=== PATIENT | female | born 1985 | race Caucasian/White ===

== ENCOUNTER 2023-08-02 14:59 | Emergency (ER) | payer OTHER ==
--- NOTE | 2023-08-02 15:08 | ED ---
General Adult HPI <Danette Mckee - Last Filed: 08/02/23 15:07> <Chaka Ryan - Last Filed: 08/03/23 20:23> - General Stated complaint: Abd Pain Time Seen by Provider: 08/02/23 15:08 - History of Present Illness Initial comments: 37-year-old female sitting emergency department with a chief complaint of abdominal pain. She reports it started at 0900 this morning. Patient is currently and [facility] for EtOH withdrawal. Last known alcoholic beverages approximately 18 days ago. (Danette Mckee) 37-year-old female presenting with chief complaint of nausea vomiting and diarrhea. Symptoms started this morning. Patient is currently at [facility] for alcohol withdrawal. She normally drinks a half gallon per day, her last drink was on either July 27, she is unsure. She was having some abdominal discomfort, she has history of pancreatitis and was concerned she may be having a pancreatitis flareup. She admits to headache. No chest pain or difficulty breathing. No fevers or chills. No palpitations, numbness, tingling. (Chaka Ryan) - Related Data Previous Rx's Medication Instructions Recorded Ondansetron Odt [Zofran Odt] 4 mg PO Q8HR PRN #20 tab 08/03/23 Ondansetron Odt [Zofran Odt] 4 mg PO Q8HR PRN #20 tab 08/03/23 Allergies Allergy/AdvReac Type Severity Reaction Status Date / Time No Known Allergies Allergy Verified 08/02/23 18:48 Review of Systems ROS Other: All systems not noted in ROS Statement are negative. <Danette Mckee - Last Filed: 08/02/23 15:07> ROS Other: All systems not noted in ROS Statement are negative. <Chaka Ryan - Last Filed: 08/03/23 20:23> ROS Statement: Those systems with pertinent positive or pertinent negative responses have been documented in the HPI. General Exam <Danette Mckee - Last Filed: 08/02/23 15:07> Limitations: no limitations General appearance: alert, in no apparent distress Head exam: Present: atraumatic, normocephalic Eye exam: Present: normal appearance Neck exam: Present: normal inspection Respiratory exam: Present: normal lung sounds bilaterally. Absent: respiratory distress, wheezes, rales, rhonchi, stridor Cardiovascular Exam: Present: regular rate, normal rhythm, normal heart sounds. Absent: systolic murmur, diastolic murmur, rubs, gallop, clicks GI/Abdominal exam: Present: soft, tenderness (Diffuse discomfort). Absent: distended, guarding, rebound, rigid Neurological exam: Present: alert, oriented X3 Psychiatric exam: Present: normal affect, normal mood Skin exam: Present: warm, dry <Chaka Ryan - Last Filed: 08/03/23 20:23> - General Exam Comments Initial Comments: Visual Physical Exam Vital signs reviewed General: Well-appearing, nontoxic, no acute distress. Head: Normocephalic, atraumatic Eyes: PERRLA, EOMI ENT: Airway patent Chest: Nonlabored breathing Skin: No visual rash, normal skin tone Neuro: Alert and oriented 3 Musculoskeletal: No gross abnormalities (Danette Mckee) Course Vital Signs 08/02/23 08/03/23 08/03/23 18:40 01:40 04:42 Temperature 98.8 F 98.4 F 98.2 F Pulse Rate 84 79 76 Respiratory 22 18 18 Rate Blood Pressure 126/87 108/75 112/74 O2 Sat by Pulse 100 97 97 Oximetry Medical Decision Making <Danette Mckee - Last Filed: 08/02/23 15:07> - Lab Data Result diagrams: 08/02/23 21:04 08/02/23 21:04 <Chaka Ryan - Last Filed: 08/03/23 20:23> - Medical Decision Making I performed the quick note portion of this exam, verbal signature Danette Mckee PA-C (Danette Mckee) Was pt. sent in by a medical professional or institution (ANGELA Rush, MAGNETIC PROSPECTOR, urgent care, hospital, or prison...) When possible be specific @ -No Did you speak to anyone other than the patient for history (EMS, parent, family, police, friend...)? What history was obtained from this source @ -No Did you review nursing and triage notes (agree or disagree)? Why? @ -I reviewed and agree with nursing and triage notes Were old charts reviewed (outside hosp., previous admission, EMS record, old EKG, old radiological studies, urgent care reports/EKG's, prison records)? Report findings @ -No old charts were reviewed Differential Diagnosis (chest pain, altered mental status, abdominal pain women, abdominal pain men, vaginal bleeding, weakness, fever, dyspnea, syncope, headache, dizziness, GI bleed, back pain, seizure, CVA, palpatations, mental health, musculoskeletal)? @ -Differential includes alcohol withdrawal, gastroenteritis, pancreatitis, pyelonephritis, this is not an all inclusive list EKG interpreted by me (3pts min.). @ -As above X-rays interpreted by me (1pt min.). @ -None done CT interpreted by me (1pt min.). @ -None done U/S interpreted by me (1pt. min.). @ -None done What testing was considered but not performed or refused? (CT, X-rays, U/S, labs)? Why? @ -None What meds were considered but not given or refused? Why? @ -None Did you discuss the management of the patient with other professionals (professionals i.e. , PA, MAGNETIC PROSPECTOR, lab, RT, psych nurse, social media community manager, sports health club membership advisors, teacher, operations officer, case therapist)? Give summary @ -No Was smoking cessation discussed for >3mins.? @ -No Was critical care preformed (if so, how long)? @ -No Were there social determinants of health that impacted care today? How? (Homelessness, low income, unemployed, alcoholism, drug addiction, transportation, low edu. Level, literacy, decrease access to med. care, long term, rehab)? @ -No Was there de-escalation of care discussed even if they declined (Discuss DNR or withdrawal of care, Hospice)? DNR status @ -No What co-morbidities impacted this encounter? (DM, HTN, Smoking, COPD, CAD, Cancer, CVA, ARF, Chemo, Hep., AIDS, mental health diagnosis, sleep apnea, morbid obesity)? @ -None Was patient admitted / discharged? Hospital course, mention meds given and route, prescriptions, significant lab abnormalities, going to OR and other pertinent info. @ -37-year-old female presenting with chief complaint of nausea and vomiting and diarrhea. She admits to headache. She is currently at [facility] for alcohol withdrawal. Last drink was 6-7 days ago. History of physical exam were conducted. Patient had diffuse discomfort on palpation of the abdomen with no guarding or rebound, no localized tenderness. CIWA score of 3. He is given pain meds and nausea meds. Some alcoholic hepatitis as noted on CMP with bilirubin 1.7 and AST 66 and alkaline phosphatase 173. Sodium 133. No leukocytosis. She will be treated for gastroenteritis provided with Zofran, she'll be discharged back to [facility]. Follow-up with PCP. Report back to ER with any new or worsening symptoms. Discussed return parameters and answered all questions. Patient conveyed verbal understanding and agreed to the plan. I discussed this case in detail with my attending Dr. Corley Undiagnosed new problem with uncertain prognosis? @ -No Drug Therapy requiring intensive monitoring for toxicity (Heparin, Nitro, Insulin, Cardizem)? @ -No Were any procedures done? @ -No Diagnosis/symptom? @ -Gastroenteritis Acute, or Chronic, or Acute on Chronic? @ -Acute Uncomplicated (without systemic symptoms) or Complicated (systemic symptoms)? @ -Uncomplicated Side effects of treatment? @ -No Exacerbation, Progression, or Severe Exacerbation? @ -No Poses a threat to life or bodily function? How? (Chest pain, USA, ND, pneumonia, PE, COPD, DKA, ARF, appy, cholecystitis, CVA, Diverticulitis, Homicidal, Suicidal, threat to staff... and all critical care pts) @ -Low likelihood (Chaka Ryan) - Lab Data Lab Results 08/02/23 08/02/23 08/02/23 Range/Units 21:04 21:04 21:04 WBC 8.7 (3.8-10.6) k/uL RBC 3.67 L (3.80-5.40) m/uL Hgb 11.0 L (11.4-16.0) gm/dL Hct 34.0 (34.0-46.0) % MCV 92.7 (80.0-100.0) fL MCH 30.0 (25.0-35.0) pg MCHC 32.4 (31.0-37.0) g/dL RDW 16.8 H (11.5-15.5) % Plt Count 550 H (150-450) k/uL MPV 7.1 Neutrophils % 46 % Lymphocytes % 34 % Monocytes % 10 % Eosinophils % 4 % Basophils % 2 % Neutrophils # 4.0 (1.3-7.7) k/uL Lymphocytes # 2.9 (1.0-4.8) k/uL Monocytes # 0.9 (0-1.0) k/uL Eosinophils # 0.4 (0-0.7) k/uL Basophils # 0.2 (0-0.2) k/uL Anisocytosis Slight Sodium 133 L (137-145) mmol/L Potassium 3.7 (3.5-5.1) mmol/L Chloride 101 (98-107) mmol/L Carbon Dioxide 18 L (22-30) mmol/L Anion Gap 14 mmol/L BUN 3 L (7-17) mg/dL Creatinine 0.57 (0.52-1.04) mg/dL Est GFR (CKD-EPI)AfAm >90 (>60 ml/min/1.73 sqM) Est GFR (CKD-EPI)NonAf >90 (>60 ml/min/1.73 sqM) Glucose 94 (74-99) mg/dL Calcium 9.0 (8.4-10.2) mg/dL Total Bilirubin 1.7 H (0.2-1.3) mg/dL AST 66 H (14-36) U/L ALT 18 (4-34) U/L Alkaline Phosphatase 173 H (38-126) U/L Total Protein 6.4 (6.3-8.2) g/dL Albumin 3.2 L (3.5-5.0) g/dL Lipase 55 (23-300) U/L Urine Color Light Yellow Urine Appearance Clear (Clear) Urine pH 5.0 (5.0-8.0) Ur Specific [place] 1.002 (1.001-1.035) Urine Protein Negative (Negative) Urine Glucose (UA) Negative (Negative) Urine Ketones Negative (Negative) Urine Blood Negative (Negative) Urine Nitrite Negative (Negative) Urine Bilirubin Negative (Negative) Urine Urobilinogen 0.2 (<2.0) mg/dL Ur Leukocyte Esterase Negative (Negative) Influenza Type A (PCR) (Not Detectd) Influenza Type B (PCR) (Not Detectd) RSV (PCR) (Not Detectd) SARS-CoV-2 (PCR) (Not Detectd) 12/28/23 Range/Units 21:04 WBC (3.8-10.6) k/uL RBC (3.80-5.40) m/uL Hgb (11.4-16.0) gm/dL Hct (34.0-46.0) % MCV (80.0-100.0) fL MCH (25.0-35.0) pg MCHC (31.0-37.0) g/dL RDW (11.5-15.5) % Plt Count (150-450) k/uL MPV Neutrophils % % Lymphocytes % % Monocytes % % Eosinophils % % Basophils % % Neutrophils # (1.3-7.7) k/uL Lymphocytes # (1.0-4.8) k/uL Monocytes # (0-1.0) k/uL Eosinophils # (0-0.7) k/uL Basophils # (0-0.2) k/uL Anisocytosis Sodium (137-145) mmol/L Potassium (3.5-5.1) mmol/L Chloride (98-107) mmol/L Carbon Dioxide (22-30) mmol/L Anion Gap mmol/L BUN (7-17) mg/dL Creatinine (0.52-1.04) mg/dL Est GFR (CKD-EPI)AfAm (>60 ml/min/1.73 sqM) Est GFR (CKD-EPI)NonAf (>60 ml/min/1.73 sqM) Glucose (74-99) mg/dL Calcium (8.4-10.2) mg/dL Total Bilirubin (0.2-1.3) mg/dL AST (14-36) U/L ALT (4-34) U/L Alkaline Phosphatase (38-126) U/L Total Protein (6.3-8.2) g/dL Albumin (3.5-5.0) g/dL Lipase (23-300) U/L Urine Color Urine Appearance (Clear) Urine pH (5.0-8.0) Ur Specific [place] (1.001-1.035) Urine Protein (Negative) Urine Glucose (UA) (Negative) Urine Ketones (Negative) Urine Blood (Negative) Urine Nitrite (Negative) Urine Bilirubin (Negative) Urine Urobilinogen (<2.0) mg/dL Ur Leukocyte Esterase (Negative) Influenza Type A (PCR) Not Detected (Not Detectd) Influenza Type B (PCR) Not Detected (Not Detectd) RSV (PCR) Not Detected (Not Detectd) SARS-CoV-2 (PCR) Not Detected (Not Detectd) Disposition <Danette Mckee - Last Filed: 08/02/23 15:07> Is patient prescribed a controlled substance at d/c from ED?: No Time of Disposition: 01:33 <Chaka Ryan - Last Filed: 08/03/23 20:23> Clinical Impression: Gastroenteritis Disposition: HOME SELF-CARE Condition: Fair Instructions (If sedation given, give patient instructions): Gastroenteritis (ED), Alcohol Withdrawal (ED) Additional Instructions: Follow-up with PCP. Report back to ER with any new or worsening symptoms. Prescriptions: Ondansetron Odt [Zofran Odt] 4 mg PO Q8HR PRN #20 tab PRN Reason: Nausea Ondansetron Odt [Zofran Odt] 4 mg PO Q8HR PRN #20 tab PRN Reason: Nausea Referrals: Nonstaff,Physician [Primary Care Provider] - 1-2 days
[2023-08-02 21:23] LABS: Anisocytosis Slight; Basophils # (A) 0.2 k/uL (0-0.2); Basophils % (A) 2 %; Eosinophils # (A) 0.4 k/uL (0-0.7); Eosinophils % (A) 4 %; Lymphocytes # (A) 2.9 k/uL (1.0-4.8); Lymphocytes % (A) 34 %; MCHC 32.4 g/dL (31.0-37.0); MCV 92.7 fL (80.0-100.0); Mean Platelet Volume 7.1; Monocytes # (A) 0.9 k/uL (0-1.0); Monocytes % (A) 10 %; Neutrophils % (A) 46 %; Platelet Count 550 k/uL (150-450); RBC 3.67 m/uL (3.80-5.40); RDW 16.8 % (11.5-15.5); WBC 8.7 k/uL (3.8-10.6)
[2023-08-02 21:39] LABS: ALT 18 U/L (4-34); AST 66 U/L (14-36); African American GFR (CKD) >90 (>60 ml/min/1.73 sqM); Albumin 3.2 g/dL (3.5-5.0); Alkaline Phosphatase 173 U/L (38-126); Anion Gap 14 mmol/L; Blood Urea Nitrogen 3 mg/dL (7-17); Carbon Dioxide 18 mmol/L (22-30); Chloride 101 mmol/L (98-107); Glucose 94 mg/dL (74-99); Lipase 55 U/L (23-300); Non-African American GFR(CKD) >90 (>60 ml/min/1.73 sqM); Potassium 3.7 mmol/L (3.5-5.1); Sodium 133 mmol/L (137-145); Total Bilirubin 1.7 mg/dL (0.2-1.3); Total Protein 6.4 g/dL (6.3-8.2)
[2023-08-02 22:44] LABS: Appearance,Urine Clear (Clear); Color,Urine Light Yellow; Specific Gravity,Urine 1.002 (1.001-1.035)
[2023-08-02 22:45] LABS: Bilirubin,Urine Negative (Negative); Blood,Urine Negative (Negative); Glucose,Urine (UA) Negative (Negative); Ketones,Urine Negative (Negative); Leukocyte Esterase,Urine Negative (Negative); Nitrite,Urine Negative (Negative); Protein,Urine Negative (Negative); Urobilinogen,Urine 0.2 mg/dL (<2.0)
[2023-08-03] MEDS ORDERED: THIAMINE 100 MG/ML 2 ML VIAL IM STA (01:26)
[2023-08-03] MEDS ORDERED: LORazepam 2 MG/ML INJ IV PRN ×3 (01:26)
[2023-08-03] MEDS ORDERED: IBUPROFEN 400 MG TAB PO PRN (01:31)
[2023-08-03] MEDS ORDERED: NALOXONE 0.4 MG/ML 1 ML VIAL IV PRN (01:31)
[2023-08-03] MEDS ORDERED: ONDANSETRON 4 MG/2 ML VIAL IVP PRN (01:31)
[2023-08-03] MEDS ORDERED: KETOROLAC 15 MG/ML 1 ML VIAL IVP PRN (01:31)
[2023-08-03] MEDS ORDERED: SODIUM CHLORIDE 0.9% 2,000 ML IV ONE (01:33)
[2023-08-03] MEDS ORDERED: SODIUM CHLORIDE 0.9% 1,000 ML IV SCH (01:45)
[2023-08-03 01:57] VITALS: RESP 18
[2023-08-03 04:59] VITALS: BP 112/74; PULSE 76; TEMP 98.2
[2023-08-04] MEDS ORDERED: THIAMINE 100 MG TAB PO SCH (09:00)
== END 2023-08-03 04:44 | disposition home or self-care (01) ==
LOC: EC 14:59
DX: K52.9 Noninfective gastroenteritis and colitis, unspecified (principal)
CPT/HCPCS: 36415; 80053; 83690; 85025; 81003; 87636; 99284; 96374; 96375; 96361 ×2; 96372; J2060; J3411; J1885